=== PATIENT | female | born 1975 | race Caucasian/White ===

== ENCOUNTER 2024-05-18 16:46 | Outpatient (OUT) | payer OTHER, SELFPAY ==
[2024-05-18 17:10] LABS: Basophils Percent Auto 0.6 % (0.2-2.0); Eosinophils Absolute Auto 0.2 10^3/uL (0.0-0.7); Eosinophils Percent Auto 3.5 % (0.9-7.0); Hematocrit 44.2 % (36.0-48.0); Hemoglobin 15.1 g/dL (12.0-16.0); Immature Granulocytes Abs Auto 0.01 10^3/uL (0.00-0.03); Immature Granulocytes Pct Auto 0.2 % (0.0-0.5); Lymphocytes Absolute Auto 1.5 10^3/uL (1.2-3.8); Lymphocytes Percent Auto 23.1 % (20.5-60.0); Mean Corpuscular HGB Conc 34.2 g/dL (29.9-35.2); Mean Corpuscular Hemoglobin 31.8 pg (26.7-34.0); Mean Corpuscular Volume 93.1 fL (81.0-99.0); Mean Platelet Volume 8.8 fL (9.5-13.5); Monocytes Absolute Auto 0.4 10^3/uL (0.3-0.8); Neutrophils Absolute Auto 4.1 10^3/uL (1.4-6.5); Neutrophils Percent Auto 65.6 % (43.0-75.0); Platelet Count 333 10^3/uL (150-450); Red Blood Count 4.75 10^6/uL (4.20-5.40); Red Cell Distribution Width 12.1 % (11.0-15.0); White Blood Count 6.3 10^3/uL (4.0-11.0)
[2024-05-18 17:28] LABS: Estimated Average Glucose 103 mg/dL; Glycohemoglobin A1C 5.2 % (4.5-6.2)
[2024-05-18 17:51] LABS: Alanine Aminotransferase 51 U/L (14-59); Albumin Globulin Ratio 1.1; Albumin Level 4.3 g/dL (3.4-5.0); Alkaline Phosphatase 68 U/L (46-116); Anion Gap 14.6; Aspartate Amino Transferase 36 U/L (15-37); BUN Creatinine Ratio 15.4; Bilirubin Total 1.4 mg/dL (0.2-1.0); Calcium 9.6 mg/dL (8.5-10.1); Carbon Dioxide 27.4 mmol/L (21.0-32.0); Chloride 99 mmol/L (98-107); Chol HDL Ratio 2.8; Cholesterol 325 mg/dL (<=200); Estimated GFR (African America >60 (>=60 mL/min/1.73m^2); Estimated GFR (Non-African Ame >60 (>=60 mL/min/1.73m^2); Free T3 2.48 pg/mL (2.18-3.98); Glucose 106 mg/dL (74-106); HDL Cholesterol 117 mg/dL (40-60); Sodium 137 mmol/L (136-145); Thyroid Stimulating Hormone 1.928 uIU/mL (0.358-3.740); Total Protein 8.3 g/dL (6.4-8.2); Triglycerides 150 mg/dL (<=150)
[2024-05-20 04:13] LABS: Insulin 8.8 uIU/mL (2.6-24.9); Vitamin B12 723 pg/mL (232-1245)
[2024-05-25 13:09] LABS: Vitamin B1 (Thiamine), Blood 145.6 nmol/L (66.5-200.0)
== END 2024-05-18 16:47 | disposition home or self-care (01) ==
PROVIDERS: PCP Nurse Practitioner Family; Visit Provider Nurse Practitioner Family
DX: Z00.00 Encounter for general adult medical examination without abnormal findings (principal); E03.9 Hypothyroidism, unspecified; E55.9 Vitamin D deficiency, unspecified; D51.9 Vitamin B12 deficiency anemia, unspecified
CPT/HCPCS: 36415; 80053; 80061; 82306; 82607; 83036; 83525; 83540; 84425; 84436; 84443; 84481; 85025

== ENCOUNTER 2024-05-25 15:51 | Outpatient (OUT) | payer OTHER, SELFPAY ==
--- NOTE | 2024-05-25 16:12 | XR_ITS ---
The [place] [id number] Patient Name: ELISABETH NEWBY MRN: [id number] date: 1975 Sex: F Assigned Patient Location: [facility] Current Patient Location: [facility] Accession/Order Number: [id number] Exam Date: 05/25/2024 15:59 Report Date: 05/27/2024 07:10 At the request of: JULIA VILLA Procedure: XR lumbar spine 2-3V EXAMINATION: XR lumbar spine 2-3V HISTORY: Back Pain, M54.9 COMPARISON: No relevant comparison available. FINDINGS: BONES: Normal alignment with no acute fracture or spondylolisthesis. Minimal spondylosis and facet osteoarthropathy DISC SPACES: Normal. No significant disc height narrowing, subluxation, or endplate abnormality. PARASPINOUS: Negative. No paraspinous abnormality is seen. OTHER: Negative. XR/XR lumbar spine 2-3V IMPRESSION: Minimal degenerative change Electronically authenticated by: ELDA GOFF Date: 05/27/2024 07:10
--- NOTE | 2024-05-25 16:12 | XR_ITS ---
The [address] [address] Patient Name: ELISABETH NEWBY MRN: [id number] date: 1975 Sex: F Assigned Patient Location: [facility] Current Patient Location: Accession/Order Number: [id number] Exam Date: 05/25/2024 15:59 Report Date: 05/27/2024 06:58 At the request of: JULIA VILLA Procedure: XR hip BI w PEL 1V EXAMINATION: XR hip BI w PEL 1V HISTORY: Hip Pain, M25.559 COMPARISON: No relevant comparison available. FINDINGS: RIGHT FINDINGS: BONES: No significant arthropathy or acute abnormality. SOFT TISSUES: No visible soft tissue swelling. OTHER: Negative. LEFT FINDINGS: BONES: No significant arthropathy or acute abnormality. SOFT TISSUES: No visible soft tissue swelling. OTHER: Negative. XR/XR hip BI w PEL 1V IMPRESSION: RIGHT CONCLUSION: No acute abnormality or significant degenerative changes. LEFT CONCLUSION: No acute abnormality or significant degenerative changes. Electronically authenticated by: DEWEY VENEGAS Date: 05/27/2024 06:58
== END 2024-05-25 15:52 | disposition home or self-care (01) ==
LOC: RAD 15:52
PROVIDERS: PCP Nurse Practitioner Family; Visit Provider Nurse Practitioner Family
DX: M54.9 Dorsalgia, unspecified (principal); M25.551 Pain in right hip; M25.552 Pain in left hip
CPT/HCPCS: 72100; 73523